=== PATIENT | male | born 1950 | race Caucasian/White ===

== ENCOUNTER 2016-08-01 17:58 | Emergency (ER) | payer MEDICAID ==
[2016-08-01] MEDS ORDERED: RINGERS SOLUTION,LACTATED 1,000 ML IV ONE (18:27)
[2016-08-01] MEDS ORDERED: SILVER SULFADIAZINE 1% CREAM 25 GM TP ONE (18:28)
[2016-08-01] MEDS ORDERED: MORPHINE SULFATE 10 MG/ML INJ IV ONE (18:28)
[2016-08-01] MEDS ORDERED: IBUPROFEN 400 MG TABLET PO ONE (18:28)
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
[2016-08-02 01:41] VITALS: BP 135/84
[2016-08-02] MEDS ORDERED: MORPHINE SULFATE 10 MG/ML INJ IV ONE (02:30)
== END 2016-08-02 02:30 | disposition short-term general hospital (02) ==
LOC: ER 17:58
DX: T23.242A Burn of second degree of multiple left fingers (nail), including thumb, initial encounter (principal); T22.212A Burn of second degree of left forearm, initial encounter; T23.241A Burn of second degree of multiple right fingers (nail), including thumb, initial encounter; T22.211A Burn of second degree of right forearm, initial encounter; T31.0 Burns involving less than 10% of body surface; X10.2XXA Contact with fats and cooking oils, initial encounter; Y92.000 Kitchen of unspecified non-institutional (private) residence as the place of occurrence of the external cause; F17.200 Nicotine dependence, unspecified, uncomplicated; I10 Essential (primary) hypertension; E03.9 Hypothyroidism, unspecified; K21.9 Gastro-esophageal reflux disease without esophagitis
CPT/HCPCS: 96376; 99285; 96361; 96374; J3490 ×2; J2270 ×2; J7120

== ENCOUNTER 2016-11-21 15:20 | Emergency (ER) | payer MEDICAID ==
[2016-11-21 15:35] VITALS: BP 161/95
--- NOTE | 2016-11-21 16:18 | ER Document Report ---
HPI - HPI Patient complains to provider of: r lower eye lid pain, swelling Onset: Yesterday Onset/Duration: Gradual Quality of pain: Achy Pain Level: 2 Context: Patient presents complaining of pain and redness to right lower eyelid. Patient denies any visual changes. Patient denies any drainage or discharge to the right eye. Patient states that he has been applying warm compresses today that improved his discomfort some. Associated Symptoms: Other - eyelid pain Exacerbated by: Denies Relieved by: Denies Similar symptoms previously: No Recently seen / treated by doctor: Yes - ROS ROS below otherwise negative: Yes Systems Reviewed and Negative: Yes All other systems reviewed and negative - EENT EENT: REPORTS: Eye problems - DERM Skin Color: Normal Past Medical History - General Information source: Patient - Social History Smoking Status: Current Every Day Smoker Frequency of alcohol use: Occasional Drug Abuse: None Occupation: none Lives with: Alone Family History: Reviewed & Not Pertinent - Past Medical History Cardiac Medical History: Reports: Hx Hypertension Endocrine Medical History: Reports: Hx Hypothyroidism Renal/ Medical History: Denies: Hx Peritoneal Dialysis GI Medical History: Reports: Hx Gastroesophageal Reflux Disease Psychiatric Medical History: Reports: Hx Anxiety, Hx Depression Past Surgical History: Reports: Hx Abdominal Surgery - hernia repair Vertical Provider Document - CONSTITUTIONAL Agree With Documented VS: Yes Exam Limitations: No Limitations General Appearance: WD/WN, No Apparent Distress - INFECTION CONTROL TRAVEL OUTSIDE OF THE [place] IN LAST 30 DAYS: No - HEENT HEENT: Atraumatic, Normocephalic Notes: hordeolum to right lower eyelid, no scleral injection or drainage - NECK Neck: Normal Inspection - RESPIRATORY Respiratory: No Respiratory Distress O2 Sat by Pulse Oximetry: 96 - MUSCULOSKELETAL/EXTREMETIES Musculoskeletal/Extremeties: MAEW - NEURO Level of Consciousness: Awake, Alert, Appropriate Motor/Sensory: No Motor Deficit - DERM Integumentary: Warm, Dry Course - Vital Signs Vital signs: Temp Pulse Resp BP Pulse Ox 98.3 F 77 20 161/95 H 96 11/21/16 15:33 11/21/16 15:33 11/21/16 15:33 11/21/16 15:33 11/21/16 15:33 Discharge - Discharge Clinical Impression: Hx of essential hypertension Hordeolum externum (stye) Qualifiers: Laterality: right Eyelid: lower Qualified Code(s): H00.012 - Hordeolum externum right lower eyelid Condition: Stable Disposition: HOME, SELF-CARE Instructions: Eyedrop Use ([facility]), Sty ([facility]), Warm Packs ([facility]) Additional Instructions: Return immediately for any new or worsening symptoms Followup with your primary care provider, call tomorrow to make a followup appointment Follow-up with your medical equipment repairer for recheck, call Thursday for an appointment Prescriptions: Polymyxin B Sulfate/Tmp [Polytrim Oph Soln 10 ml] 1 drop RT_EYE ASDIR #1 bottle Forms: Elevated Blood Pressure Referrals: [facility] [Provider Group] - Follow up as needed OFFICE [facility] [Provider Group] - Follow up as needed
== END 2016-11-21 16:36 | disposition home or self-care (01) ==
LOC: ER 15:20
DX: H00.012 Hordeolum externum right lower eyelid (principal); F17.200 Nicotine dependence, unspecified, uncomplicated; I10 Essential (primary) hypertension
CPT/HCPCS: 99283

== ENCOUNTER → 2017-01-07 | Outpatient (CLI) | payer MEDICAID ==
--- NOTE | 2017-01-07 15:18 | RADIOLOGY REPORT (SQ) ---
EXAM DESCRIPTION: CT LUNG CANCER SCREENING COMPLETED DATE/TIME: 01/07/2017 2:17 pm REASON FOR STUDY: NICOTINE DEPENDENCE (F17.200) F17.200 NICOTINE DEPENDENCE, UNSPECIFIED, UNCOMPLIC ATED Has the patient had a Chest CT scan within the past year? NO Was the patient offered tobacco cessation counseling? YES Was the patient engaged in shared decision making for this test? YES Does the patient have signs or symptoms of Lung Cancer? NO Is the patient a smoker? YES How many packs per year? 730 How many years since quitting smoking? NOT APPLICABLE Patients age: 66 COMPARISON: CT angio chest 07/29/2015 TECHNIQUE: Low Dose CT scan performed of the chest without intravenous contrast for purposes of scre ening for lung cancer. Images reviewed with lung, soft tissue and bone windows. Reconstructed coron al and sagittal MPR images reviewed. All images stored on PACS. All CT scanners at this facility use dose modulation, iterative reconstruction, and/or weight based d osing when appropriate to reduce radiation dose to as low as reasonably achievable (ALARA). [facility]: Dose Right [facility]: CareDose [facility]: Dose Right [facility]: Teradose 4D [facility]: Smart [employer] RADIATION DOSE: Up-to-date CT equipment and radiation dose reduction techniques were employed. CTDIv ol: 2.1 mGy. DLP: 81 mGy-cm. mGy. . LIMITATIONS: None FINDINGS: LUNGS AND PLEURA: No masses or nodules. No pleural effusions or calcifications. No pne umothorax. No scarring or interstitial changes. HILAR AND MEDIASTINAL STRUCTURES: No identified masses. No abnormal nodes. HEART AND VASCULAR STRUCTURES: No aortic aneurysm. No pericardial effusion. No cardiac devices. CORONARY ARTERY CALCIFICATIONS: No significant calcifications. UPPER ABDOMEN, THYROID, BONES, OTHER SOFT TISSUES: No significant findings. IMPRESSION: NO SIGNIFICANT FINDING IN THE LUNGS ON NON-CONTRASTED CHEST CT. NO OTHER CLINICALLY SIGNIFICANT/POTENTIALLY CLINICALLY SIGNIFICANT FINDINGS LUNGRADS: LUNGRADS: 1 NEGATIVE. NO NODULES, OR DEFINITELY BENIGN NODULES MODIFIER: NONE RECOMMENDATION: Continue annual screening with LDCT in 12 months. COMMENT: CRITERIA: No lung nodules. Nodules with specific calcifications: Complete, central, popcorn, concentric rings and fat containin g nodules. TECHNICAL DOCUMENTATION: JOB ID: [id number] Quality ID # [id number]: Final reports with documentation of one or more dose reduction techniques (e.g., Au tomated exposure control, adjustment of the mA and/or kV according to patient size, use of iterative reconstruction technique) 2010 [employer]
== END ==
LOC: RAD 13:38
PROVIDERS: ATTEND Family Medicine
DX: F17.200 Nicotine dependence, unspecified, uncomplicated (principal)
CPT/HCPCS: G0297

== ENCOUNTER 2017-11-16 10:20 | Day surgery (SDC) | payer MEDICARE, MEDICAID ==
[~2017-11-16 10:20] MED LIST: PROPOFOL INJ 200 MG/20 ML VIAL IV ONE
[2017-11-16 12:09] VITALS: BP 141/88
--- NOTE | 2017-11-16 12:26 | Operative Report ---
Operative Report DATE OF SURGERY: 11/16/17 Operative Report: The risks benefits and alternatives of the procedure explained to the patient in detail and informed consent is obtained.A GIF Olympus video scope was inserted into the patient's mouth and hypopharynx, the esophagus is identified intubated and insufflated, the scope was then advanced through the esophagus stomach and duodenum, retroflexion maneuver is done, the esophagus stomach and first and second portions of the duodenum examined PREOPERATIVE DIAGNOSIS: Epigastric pain POSTOPERATIVE DIAGNOSIS: Esophagitis versus Angel's. Gastritis status post biopsy rule out Helicobacter pylori. Hiatal hernia OPERATION: EGD with biopsy SURGEON: MADINA FIERRO ANESTHESIA: LMAC TISSUE REMOVED OR ALTERED: As noted above. COMPLICATIONS: None. ESTIMATED BLOOD LOSS: None. INTRAOPERATIVE FINDINGS: As noted above. PROCEDURE: Patient tolerated the procedure well. No immediate postprocedure complications are noted. Patient discharged in good condition. Discharge date 11/16/2017. Discharge diet: Regular. Discharge activity: Regular. 2-3 week follow-up to discuss findings. Patient is instructed to call the office or proceed to the emergency room should there be any further problems or questions. We will wait on the pathology.
== END 2017-11-16 12:15 | disposition home or self-care (01) ==
LOC: END 10:20
PROVIDERS: ATTEND Internal Medicine Gastroenterology
DX: K29.50 Unspecified chronic gastritis without bleeding (principal); K20.9 Esophagitis, unspecified; K44.9 Diaphragmatic hernia without obstruction or gangrene; E78.5 Hyperlipidemia, unspecified; G89.4 Chronic pain syndrome; I10 Essential (primary) hypertension; K21.9 Gastro-esophageal reflux disease without esophagitis; J45.909 Unspecified asthma, uncomplicated; F17.210 Nicotine dependence, cigarettes, uncomplicated; Z13.89 Encounter for screening for other disorder; Z79.899 Other long term (current) drug therapy; Z88.0 Allergy status to penicillin; Z87.820 Personal history of traumatic brain injury
CPT/HCPCS: 43239; 88305 ×2; J2704; 731

== ENCOUNTER 2018-07-27 16:05 | Emergency (ER) | payer MEDICARE, MEDICAID ==
[2018-07-27] MEDS ORDERED: DIPH/PERTUSS(ACELL)/TETANUS VAC/PF 0.5 ML SYR (>=10YO) IM ONE (17:01)
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
[2018-07-27 19:51] VITALS: BP 134/87
== END 2018-07-27 19:49 | disposition home or self-care (01) ==
LOC: ER 16:05
DX: S01.01XA Laceration without foreign body of scalp, initial encounter (principal); F17.200 Nicotine dependence, unspecified, uncomplicated; I10 Essential (primary) hypertension; Y00.XXXA Assault by blunt object, initial encounter; Z87.820 Personal history of traumatic brain injury; Z23 Encounter for immunization
CPT/HCPCS: 70450; 90471; 90715; 99283